=== PATIENT | female | born 1980 | race Caucasian/White ===

== ENCOUNTER 2016-11-06 07:52 | Emergency (ER) | payer BC ==
[~2016-11-06] VITALS: Ht 160 cm; Wt 96.4 kg
[~2016-11-06 07:52] MED LIST: MULT20CH PO
[2016-11-06 07:58] VITALS: BP 127/88; PULSE 66; TEMP 36.7; O2SAT 100; Ht 160 cm; Wt 96.4 kg
[2016-11-06] MEDS ORDERED: CLR10 PO (08:36)
[2016-11-06] MEDS ORDERED: RANI150T3 PO (08:36)
--- NOTE | 2016-11-06 08:39 | DIAGNOSTIC IMAGING REPORT ---
LEFT ELBOW MIN 3 VIEWS ROUTINE, LEFT FOREARM 2 VIEWS ROUTINE CLINICAL HISTORY: fall onto L elbow; elbow and forearm pain COMPARISON STUDY: None. FINDINGS: No fracture or dislocation. No radiopaque foreign bodies. Mild posterior soft tissue swelling at the proximal forearm/elbow. No elbow effusion. IMPRESSION: No fracture or dislocation within the left elbow or left forearm. Electronically signed by: Tico Hernandez M.D. 11/06/2016 8:38 AM Dictated Date/Time: 11/06/2016 8:36 AM
--- NOTE | 2016-11-06 16:51 | EMERGENCY ROOM VISIT NOTE ---
ED Visit Note First contact with patient: 07:58 Chief Complaint: Left arm pain. History of Present Illness: Ms. Tate is a 36-year-old white female who ambulates into the ED accompanied by a male friend complaining of left elbow and left forearm pain. Patient reports she was taking pictures at a wedding yesterday. She accidentally tripped over a haybale and landed on her elbows. She reports she did not have any lightheadedness or dizziness before the fall, the time of the fall she did not strike her head or have a loss of consciousness and since the fall she has no signs of head injury. She does report after the fall she started having left elbow pain. Initially was mild and gradually increased in intensity. She describes an underlying achy sensation that becomes sharp with elbow movement. The pain is radiating into the forearm. She rates her discomfort 8/10. She keeps her elbow slightly flexed and has pain in the last few degrees of extension, flexion and pronation and supination of the forearm. She places the majority of her discomfort over the medial epicondylar area. She has not taken any medications for pain prior to arrival at the hospital. She denies any associated symptoms including shoulder pain, wrist pain, hand pain, arm weakness/numbness/tingling. Additionally she denies any previous significant injuries or surgeries to the left elbow or forearm. Review of Systems: As noted above in history of present illness. Past Medical History: Bronchitis, status post tonsillectomy. Current Medications: Multivitamins, Zantac, Claritin. Allergies to Medications: Clindamycin, penicillin, sulfa. Social History: Patient is currently employed; she feels safe in her home environment; she denies tobacco use and admits to social alcohol use. Physical Examination: Vital Signs: Date Time Temp Pulse Resp B/P (MAP) Pulse Ox O2 Delivery O2 Flow Rate FiO2 11/06/16 07:58 36.7 66 16 127/88 100 Room Air GENERAL: 36-year-old female in mild distress due to pain, nontoxic-appearing, afebrile and hemodynamically stable. NEUROLOGICAL: Awake, alert and oriented to person, place and time. Answering questions appropriately and following commands. Normal gait. SKIN: Warm, dry and pink. Left Elbow: Patient has a small contusion over the medial epicondylar area in the area of her pain. No open soft tissue injuries. LEFT UPPER EXTREMITY: No gross bony deformity. No tenderness throughout the shoulder or proximal humerus. Mild tenderness over the medial epicondylar area without bony swelling, deformity or crepitus. Soft tissue injury as noted above under SKIN. Minimal tenderness throughout the proximal and midforearm without bony deformity, bony crepitus or swelling. Full range of motion at the level of the shoulder and wrist. Decreased movement of the elbow in the last few degrees of flexion and extension and decreased movement of the forearm in supination. Throughout the arm the skin was warm and pink and capillary refill is brisk. She was able to distinguish light sensations through all dermatomes of the forearm. Distal pulses are intact. ED Course: Patient is assessed as noted above. Patient's medication list was reviewed. Patient was offered pain medications and refused. Left Elbow X-Rays: Were read by myself and the radiologist showing no acute fractures or dislocations. There is mild posterior elbow swelling but no joint effusion. Left Forearm X-Rays: Were read by myself and the radiologist and shows no acute fractures or dislocations. Patient was again offered pain medications and refused. Patient was offered a sling and refused. Patient was educated about today's findings and instructed on her treatment plan ; she verbalizes understanding and agreement with this plan. Clinical Impression: Left elbow contusion. Decision-Making: Initially my differential diagnosis I considered contusion, fracture, dislocation, ligamentous sprain, tenderness strain and other causes. Disposition: Patient discharged home in stable condition accompanied by her ; prior to departure she was reassessed and subjectively reported she was feeling better and rated her discomfort 4/10. Plan: Comfort measures were discussed with the patient including rest, ice and the use of ibuprofen and acetaminophen. Patient was encouraged to follow-up with orthopedic physician if no better in 7- 10 days. Patient was encouraged return the ED for worsening/uncontrolled pain, uncontrolled swelling, arm weakness/numbness/tingling or any new/concerning symptoms.
== END 2016-11-06 09:04 | disposition home or self-care (01) ==
LOC: C.EDB 07:56
DX: S50.02XA Contusion of left elbow, initial encounter (principal); W18.09XA Striking against other object with subsequent fall, initial encounter; Y93.89 Activity, other specified; Z79.899 Other long term (current) drug therapy